=== PATIENT | male | born 1975 | race Caucasian/White ===

== ENCOUNTER 2016-08-05 14:18 | Emergency (ER) | payer OTHER ==
[~2016-08-05] VITALS: Ht 180.3 cm; Wt 144.6 kg
[2016-08-05 15:36] LABS: HEMATOCRIT 47.4 % (38.0-50.0); MCH 28.8 PG (29.0-34.0); MCHC 33.8 G/DL (30.0-36.0); MCV 85.4 FL (86-99); MEAN PLAT.VOLUME 9.3 uM^3 (9.0-12.4); PLATELET COUNT 307 K/uL (156-360); RBC DIS.WIDTH-CV 11.9 % (11.8-14.6); RBC DIS.WIDTH-SD 37.1 % (39-53); RED BLOOD COUNT 5.55 M/uL (4.00-5.50); WHITE BLOOD COUNT 12.8 K/uL (4.1-10.2)
[2016-08-05 15:46] LABS: CHLORIDE 106 mEq/L (99-109); POTASSIUM 3.9 mEq/L (3.7-5.4); SODIUM 139 mEq/L (136-147)
[2016-08-05 15:47] LABS: GLUCOSE 262 mg/dL (70-99)
[2016-08-05 15:49] LABS: ANION GAP 9 MEQ/L (2-14)
[2016-08-05 15:51] LABS: GFR ESTIMATE (CALCULATED) > 59 mL/min/
[2016-08-05 15:52] LABS: UREA NITROGEN (BUN) 11 mg/dL (9-23)
[2016-08-05 15:58] LABS: TROP-I INTERPRETATION NEGATIVE; TROPONIN-I < 0.01 ng/mL (0.0-0.30)
[2016-08-05 19:01] LABS: TROP-I INTERPRETATION NEGATIVE; TROPONIN-I < 0.01 ng/mL (0.0-0.30)
[2016-08-05 19:49] VITALS: BP 137/72
== END 2016-08-05 19:50 | disposition home or self-care (01) ==
LOC: EME 14:18
PROVIDERS: Physician Assistant
DX: R07.9 Chest pain, unspecified (principal); R06.02 Shortness of breath
CPT/HCPCS: 71020; 80048; 84484; 85027; 93005; 99281; 99283

== ENCOUNTER 2016-10-04 10:52 | Emergency (ER) | payer OTHER ==
[~2016-10-04] VITALS: Ht 180.3 cm; Wt 149.0 kg
[2016-10-04 11:33] LABS: POINT-OF-CARE METER ID UU14100415; POINT-OF-CARE USER ID STWBNM
[2016-10-04] MEDS ORDERED: SUCRALFATE1 GM PO (11:42)
[2016-10-04] MEDS ORDERED: MONTELUKAST SOD10 MG PO (11:43)
[2016-10-04] MEDS ORDERED: GLIMEPIRIDE4 MG PO (11:43)
[2016-10-04] MEDS ORDERED: JANUMET 50/51 TABLET PO (11:44)
[2016-10-04] MEDS ORDERED: METHOCARBAMOL750 MG PO (11:45)
[2016-10-04] MEDS ORDERED: KETOCONAZOLE120 ML TP (11:45)
[2016-10-04] MEDS ORDERED: LOSARTAN POTAS100 MG PO (11:46)
[2016-10-04] MEDS ORDERED: PANTOPRAZOLE SO40 MG PO (11:46)
[2016-10-04] MEDS ORDERED: LORAZEPAM2 MG PO (11:47)
[2016-10-04] MEDS ORDERED: ONDANSETRON ODT4 MG PO (11:48)
[2016-10-04 11:55] LABS: ADD MIUA? NO; BILIRUBIN NEGATIVE; BLOOD NEGATIVE; COLOR YELLOW ((YELLOW)); GLUCOSE (STRIP) >=500; KETONES 20; LEUKOCYTES NEGATIVE; NITRITE NEGATIVE; PROTEIN (STRIP) NEGATIVE; SPECIFIC GRAVITY 1.023 (1.000-1.030); UCUL ADDED? NO; UROBILINOGEN 0.2 MG/DL (0.2-1.0)
[2016-10-04 12:06] LABS: MCH 29.4 PG (29.0-34.0); MCHC 35.1 G/DL (30.0-36.0); MCV 83.6 FL (86-99); MEAN PLAT.VOLUME 9.5 uM^3 (9.0-12.4); PLATELET COUNT 304 K/uL (156-360); RBC DIS.WIDTH-SD 36.5 % (39-53); RED BLOOD COUNT 5.86 M/uL (4.00-5.50); WHITE BLOOD COUNT 13.7 K/uL (4.1-10.2)
[2016-10-04 12:26] LABS: CHLORIDE 101 mEq/L (99-109); POTASSIUM 4.2 mEq/L (3.7-5.4); SODIUM 139 mEq/L (136-147)
[2016-10-04 12:28] LABS: GLUCOSE 273 mg/dL (70-99)
[2016-10-04 12:29] LABS: ANION GAP 13 MEQ/L (2-14)
[2016-10-04 12:30] LABS: TOTAL BILIRUBIN 0.7 mg/dL (0.0-1.0)
[2016-10-04 12:31] LABS: ALKALINE PHOSPHATASE 67 IU/L (3-129)
[2016-10-04 12:32] LABS: GFR ESTIMATE (CALCULATED) > 59 mL/min/
[2016-10-04 12:33] LABS: UREA NITROGEN (BUN) 14 mg/dL (9-23)
[2016-10-04 12:37] LABS: TROP-I INTERPRETATION NEGATIVE; TROPONIN-I < 0.01 ng/mL (0.0-0.30)
[2016-10-04] MEDS ORDERED: ZOFRAN ODT4 MG PO (12:53)
[2016-10-04 13:06] VITALS: BP 116/73
== END 2016-10-04 13:09 | disposition home or self-care (01) ==
LOC: EME 10:52
PROVIDERS: Nurse Practitioner Family
DX: I10 Essential (primary) hypertension (principal); E11.65 Type 2 diabetes mellitus with hyperglycemia; E78.5 Hyperlipidemia, unspecified
CPT/HCPCS: 71020; 80053; 81003; 82948; 84484; 85027; 93005; 99281; 99285; J2405; J7030

== ENCOUNTER 2016-12-24 03:23 | Emergency (ER) | payer OTHER ==
[~2016-12-24] VITALS: Ht 180.3 cm; Wt 149.4 kg
[~2016-12-24 03:23] MED LIST: GLIMEPIRIDE4 MG PO; JANUMET 50/51 TABLET PO; KETOCONAZOLE120 ML TP; LORAZEPAM2 MG PO; LOSARTAN POTAS100 MG PO; METHOCARBAMOL750 MG PO; MONTELUKAST SOD10 MG PO; ONDANSETRON ODT4 MG PO; PANTOPRAZOLE SO40 MG PO; SUCRALFATE1 GM PO; ZOFRAN ODT4 MG PO
[2016-12-24 05:28] LABS: CHLORIDE 108 mEq/L (99-109); POTASSIUM 3.5 mEq/L (3.7-5.4); SODIUM 138 mEq/L (136-147)
[2016-12-24 05:30] LABS: GLUCOSE 308 mg/dL (70-99)
[2016-12-24 05:31] LABS: ANION GAP 12 MEQ/L (2-14)
[2016-12-24 05:32] LABS: TOTAL BILIRUBIN 0.7 mg/dL (0.0-1.0)
[2016-12-24 05:34] LABS: ALKALINE PHOSPHATASE 60 IU/L (3-129); GFR ESTIMATE (CALCULATED) > 59 mL/min/
[2016-12-24 05:35] LABS: UREA NITROGEN (BUN) 14 mg/dL (9-23)
[2016-12-24 05:39] LABS: BASOPHIL COUNT 0.1 K/uL (0-0.1); EOSINOPHIL (%) 0.9 % (0-5); EOSINOPHIL COUNT 0.1 K/uL (0-0.3); HEMATOCRIT 47.8 % (38.0-50.0); IMMATURE GRANULOCYTE (%) 1.7 % (0.0-0.7); IMMATURE GRANULOCYTE COUNT 0.1 K/uL; INSTRUMENT ABS NEUTROPHIL CT 5.4 K/uL; LYMPHOCYTE COUNT 2.1 K/uL (1.0-2.8); MCH 28.2 PG (29.0-34.0); MCHC 33.7 G/DL (30.0-36.0); MCV 83.7 FL (86-99); MEAN PLAT.VOLUME 9.8 uM^3 (9.0-12.4); MONOCYTE (%) 7.7 % (3-12); MONOCYTE COUNT 0.7 K/uL (0-0.8); NEUTROPHIL COUNT 5.4 K/uL (1.8-6.4); PLATELET COUNT 262 K/uL (156-360); RBC DIS.WIDTH-CV 12.4 % (11.8-14.6); RBC DIS.WIDTH-SD 37.2 % (39-53); RED BLOOD COUNT 5.71 M/uL (4.00-5.50); WHITE BLOOD COUNT 8.4 K/uL (4.1-10.2)
[2016-12-24 05:41] LABS: D-DIMER ELISA < 150.00 ng/mLDDU (<230)
[2016-12-24 05:45] LABS: TROP-I INTERPRETATION NEGATIVE; TROPONIN-I 0.01 ng/mL (0.0-0.30)
[2016-12-24 07:48] LABS: TROP-I INTERPRETATION NEGATIVE; TROPONIN-I < 0.01 ng/mL (0.0-0.30)
[2016-12-24 08:15] VITALS: BP 151/59
== END 2016-12-24 08:25 | disposition home or self-care (01) ==
LOC: EME 03:23
PROVIDERS: Emergency Medicine
DX: R07.89 Other chest pain (principal); E11.65 Type 2 diabetes mellitus with hyperglycemia; I10 Essential (primary) hypertension; E78.5 Hyperlipidemia, unspecified
CPT/HCPCS: 71020; 80053; 84484; 85025; 85379; 93005; 94640; 99281; 99285

== ENCOUNTER 2017-02-15 15:50 | Emergency (ER) | payer OTHER ==
[~2017-02-15] VITALS: Ht 180.3 cm; Wt 151.9 kg
[2017-02-15 16:30] LABS: HEMATOCRIT 45.3 % (38.0-50.0); MCH 29.1 PG (29.0-34.0); MCHC 34.4 G/DL (30.0-36.0); MCV 84.5 FL (86-99); MEAN PLAT.VOLUME 9.5 uM^3 (9.0-12.4); PLATELET COUNT 265 K/uL (156-360); RBC DIS.WIDTH-CV 12.2 % (11.8-14.6); RBC DIS.WIDTH-SD 36.8 % (39-53); RED BLOOD COUNT 5.36 M/uL (4.00-5.50); WHITE BLOOD COUNT 10.2 K/uL (4.1-10.2)
[2017-02-15 16:37] LABS: CHLORIDE 106 mEq/L (99-109); POTASSIUM 3.5 mEq/L (3.7-5.4); SODIUM 139 mEq/L (136-147)
[2017-02-15 16:39] LABS: GLUCOSE 158 mg/dL (70-99)
[2017-02-15 16:40] LABS: ANION GAP 9 MEQ/L (2-14)
[2017-02-15 16:41] LABS: TOTAL BILIRUBIN 1.1 mg/dL (0.0-1.0)
[2017-02-15 16:43] LABS: ALKALINE PHOSPHATASE 55 IU/L (3-129); GFR ESTIMATE (CALCULATED) > 59 mL/min/
[2017-02-15 16:44] LABS: UREA NITROGEN (BUN) 9 mg/dL (9-23)
[2017-02-15 16:46] LABS: LIPASE 18 U/L (1.0-51.0)
[2017-02-15] MEDS ORDERED: ZOFRAN ODT4 MG PO (17:01)
[2017-02-15] MEDS ORDERED: FIORICET 50-301 EAC1 PO (17:01)
[2017-02-15 17:54] VITALS: BP 128/74
== END 2017-02-15 17:56 | disposition home or self-care (01) ==
LOC: EME 15:50
PROVIDERS: Nurse Practitioner Family
DX: G43.909 Migraine, unspecified, not intractable, without status migrainosus (principal); R74.8 Abnormal levels of other serum enzymes; R19.7 Diarrhea, unspecified; H54.61 Unqualified visual loss, right eye, normal vision left eye; I10 Essential (primary) hypertension; E11.9 Type 2 diabetes mellitus without complications; Z79.84 Long term (current) use of oral hypoglycemic drugs; Z87.442 Personal history of urinary calculi
CPT/HCPCS: 80053; 83690; 85027; 99281; 99284; J1885

== ENCOUNTER 2017-05-31 08:27 | Emergency (ER) | payer OTHER ==
[~2017-05-31] VITALS: Ht 180.3 cm; Wt 149.0 kg
[~2017-05-31 08:27] MED LIST changes: +FIORICET 50-301 EAC1 PO
[2017-05-31] MEDS ORDERED: ABILIFY20 MG PO (09:26)
[2017-05-31] MEDS ORDERED: NOVOLOG MI100 UNIT/2 SC (09:26)
[2017-05-31] MEDS ORDERED: JANUMET XR 50-1 EAC1 PO (09:27)
[2017-05-31] MEDS ORDERED: LIPITOR10 MG PO (09:27)
[2017-05-31] MEDS ORDERED: ESZOPICLONE3 MG PO (09:27)
[2017-05-31] MEDS ORDERED: TOBREX5 ML RIGHT EYE (09:49)
[2017-05-31 09:59] VITALS: BP 156/67
== END 2017-05-31 10:00 | disposition home or self-care (01) ==
LOC: EME 08:27
DX: H10.9 Unspecified conjunctivitis (principal); H54.61 Unqualified visual loss, right eye, normal vision left eye; J45.909 Unspecified asthma, uncomplicated; I10 Essential (primary) hypertension; E78.5 Hyperlipidemia, unspecified; E11.9 Type 2 diabetes mellitus without complications; Z86.61 Personal history of infections of the central nervous system; Z87.442 Personal history of urinary calculi; Z79.84 Long term (current) use of oral hypoglycemic drugs; Z88.1 Allergy status to other antibiotic agents
CPT/HCPCS: 99281; 99283